=== PATIENT | female | born 1945 | race Asian ===

== ENCOUNTER 2018-03-24 21:48 | Emergency (ER) | payer MEDICARE, OTHER ==
[~2018-03-24] VITALS: Ht 162.6 cm; Wt 69.1 kg
[~2018-03-24 21:48] MED LIST: ATEN50TA PO; LISI-660 PO; LORA10TA7 PO; METF500T6 PO; RANO500T3 PO; SUCR1TAB PO
[2018-03-25] MEDS ORDERED: DiphenhydrAMINE HCL 50 MG/ML VIAL IM ONE (00:30)
[2018-03-25 00:50] VITALS: BP 138/74
== END 2018-03-25 00:51 | disposition home or self-care (01) ==
LOC: EMS 21:55
DX: S60.361A Insect bite (nonvenomous) of right thumb, initial encounter (principal); I10 Essential (primary) hypertension; E78.00 Pure hypercholesterolemia, unspecified; E11.9 Type 2 diabetes mellitus without complications; K21.9 Gastro-esophageal reflux disease without esophagitis; I48.91 Unspecified atrial fibrillation; Z79.84 Long term (current) use of oral hypoglycemic drugs; Z88.6 Allergy status to analgesic agent; Z88.8 Allergy status to other drugs, medicaments and biological substances; W57.XXXA Bitten or stung by nonvenomous insect and other nonvenomous arthropods, initial encounter; Y93.89 Activity, other specified; Y92.89 Other specified places as the place of occurrence of the external cause; Y99.8 Other external cause status
CPT/HCPCS: 82962; 96372; 99283; J1200

== ENCOUNTER → 2021-04-13 | Outpatient (CLI) | payer MEDICARE, OTHER ==
[~2021-04-13] MED LIST changes: +AMLO-257 PO; +ASPI-1450 PO; -ATEN50TA PO; +ATOR40TA28 PO; +LISI-657 PO; -LISI-660 PO; +METF-960 PO; -METF500T6 PO; -RANO500T3 PO; -SUCR1TAB PO
== END | disposition home or self-care (01) ==
LOC: RADPV 09:47
PROVIDERS: ATTEND Internal Medicine
DX: I70.293 Other atherosclerosis of native arteries of extremities, bilateral legs (principal); I65.23 Occlusion and stenosis of bilateral carotid arteries
CPT/HCPCS: 93880; 93925

== ENCOUNTER → 2023-12-04 | Outpatient (CLI) | payer MEDICARE, OTHER ==
[~2023-12-04] MED LIST changes: +METF-1211 PO; -METF-960 PO
[2023-12-04 08:50] LABS: BASOPHILS % (AUTO) 0.8 % (0.0-2.0); EOSINOPHILS % (AUTO) 4.2 % (1.0-6.0); HEMOGLOBIN 9.9 g/dL (12.0-16.0); LYMPHOCYTES # (AUTO) 1.9 K/uL (1.0-4.8); LYMPHOCYTES % (AUTO) 24.5 % (22.0-44.0); MEAN CORPUSCULAR HEMOGLOBIN 20.7 pg (26.0-34.0); MEAN CORPUSCULAR VOLUME 67 fL (80-100); MONOCYTES # (AUTO) 0.8 K/uL (0.1-1.0); MONOCYTES % (AUTO) 10.6 % (2.0-9.0); NEUTROPHILS # (AUTO) 4.6 K/uL (1.8-7.7); NEUTROPHILS % (AUTO) 59.9 % (40.0-70.0); PLATELET COUNT (AUTO) 306 K/uL (150-450); RED BLOOD CELL COUNT(AUTO) 4.78 MIL/uL (4.00-5.20); RED CELL DISTRIBUTION WIDTH 15.5 % (11.5-14.5); WHITE BLOOD COUNT (AUTO) 7.7 K/uL (4.5-11.0)
[2023-12-04 08:59] LABS: HEMOGLOBIN A1C 7.3 % (3.8-5.6)
[2023-12-04 09:14] LABS: RBC MORPHOLOGY COMMENT ABNORMAL RBC MORPH
[2023-12-04 09:22] LABS: ALBUMIN 4.1 g/dL (3.4-5.0); CHOL/HDL RATIO 1.8 (3.9-5.7); CREATININE 1.59 mg/dL (0.60-1.30); MAGNESIUM 2.6 mg/dL (1.80-2.40); PHOSPHORUS 4.2 mg/dL (2.5-4.9); POTASSIUM 4.8 mmol/L (3.5-5.1)
[2023-12-04 09:36] LABS: APPEARANCE,URINE CLEAR (CLEAR); BILIRUBIN,URINE NEGATIVE (NEGATIVE); COLOR,URINE LIGHT YELLOW (YELLOW); GLUCOSE, URINE (UA) >=1000 mg/dL (NEGATIVE); KETONES,URINE NEGATIVE (NEGATIVE); LEUKOCYTE ESTERASE ,URINE NEGATIVE (NEGATIVE); NITRATE,URINE NEGATIVE (NEGATIVE); OCCULT BLOOD,URINE NEGATIVE (NEGATIVE); PROTEIN,URINE NEGATIVE (NEGATIVE); SPECIFIC GRAVITIY, URINE 1.014 (1.003-1.030); UROBILINOGEN,URINE <=1.0 mg/dL (<=1.0)
[2023-12-04 09:49] LABS: CREATININE,URINE RANDOM 78.5 mg/dL (30.0-125.0); PROTEIN,URINE RANDOM 11 mg/dL (0-11.9)
[2023-12-04 09:58] LABS: BACTERIA,URINE None Seen /HPF (None Seen); RBC,URINE None Seen /HPF (0-2); WBC,URINE None Seen /HPF (0-5)
[2023-12-05 08:07] LABS: CREATININE, URINE (mALB) 71.5 mg/dL (Not Estab.)
== END | disposition home or self-care (01) ==
LOC: LABMN 08:17
PROVIDERS: ATTEND Internal Medicine Nephrology
DX: I12.9 Hypertensive chronic kidney disease with stage 1 through stage 4 chronic kidney disease, or unspecified chronic kidney disease (principal); E11.22 Type 2 diabetes mellitus with diabetic chronic kidney disease; N18.31 Chronic kidney disease, stage 3a; D50.9 Iron deficiency anemia, unspecified; F32.0 Major depressive disorder, single episode, mild; R32 Unspecified urinary incontinence; H91.90 Unspecified hearing loss, unspecified ear; E78.49 Other hyperlipidemia
CPT/HCPCS: 80061; 80069; 81001; 82043; 82570; 83036; 83735; 84156; 85025